=== PATIENT | male | born 1965 | race African-American/Black ===

== ENCOUNTER 2023-10-08 10:44 | Day surgery (SDC) | payer OTHER ==
[2023-10-08 11:03] VITALS: RESP 19; TEMP 97.7; BMI 21.7
[2023-10-08 12:31] VITALS: BP 112/80; PULSE 78
== END 2023-10-08 12:25 | disposition home or self-care (01) ==
LOC: FASU-ENDO 10:44
PROVIDERS: ATTEND Internal Medicine Gastroenterology
PROC: 0DBL8ZX Excision of Transverse Colon, Via Natural or Artificial Opening Endoscopic, Diagnostic (ICD-10-PCS; 2023-10-08)
PROC: 0DBN8ZX Excision of Sigmoid Colon, Via Natural or Artificial Opening Endoscopic, Diagnostic (ICD-10-PCS; principal; 2023-10-08 11:43)
DX: Z12.11 Encounter for screening for malignant neoplasm of colon (principal); D12.3 Benign neoplasm of transverse colon; K63.5 Polyp of colon; K57.30 Diverticulosis of large intestine without perforation or abscess without bleeding; K64.1 Second degree hemorrhoids
CPT/HCPCS: 88305-TC